=== PATIENT | male | born 1930 | race Caucasian/White ===

== ENCOUNTER 2017-12-06 05:38 | Emergency (ER) | payer MEDICARE, OTHER ==
[~2017-12-06] VITALS: Ht 170.2 cm; Wt 93.0 kg
[~2017-12-06 05:38] MED LIST: ADULT LOW DOSE81 MG PO; ALEVE220 MG PO; AMBEREN; AMOXICILLIN500 M1 PO; ASPIRIN EC81 M1 PO; CALCITRATE200 MG; CALCIUM CARBON500 M3 PO; CALCIUM OYSTER500 MG PO; CALTRATE-600 W1 EACH PO; CITRACAL PLUS1 EAC1 PO; CLONIDINE PO; DOXYCYCLINE 10100 MG PO; ELIGARD SUBQ; ETODOLAC 400 M400 M1 PO; FEOSOL325 MG PO; FOLIC ACID1 MG; HYDROCODON-ACE1 EAC7 PO; HYTRIN 2MG CAPSU2 M1; HYTRIN 2MG CAPSU2 M1 GT; HYTRIN 2MG CAPSU2 M1 PO; I-CAPS AREDS S1 EACH PO; IRON; IRON325 PO; KEFLEX500 MG PO; LASIX 20 MG TAB20 MG PO; LASIX 40 MG TAB40 M1; LASIX 40 MG TAB40 M1 PO; LASIX 40 MG TAB40 M2 PO; LISINOPRIL20 MG PO; MULTIVITAMIN W1 EAC5 PO; MULTIVITAMINS PO; NORCO 5-325 TA1 EACH PO; PERCOCET 7.5-31 EACH PO; PRILOSEC 20 MG20 MG PO; PRINIVIL20 MG; SEE COMMENTS; VICODIN ES TAB1 EACH PO; VITAMIN C + RO500 MG PO; VITAMINC500 PO; [UNRECOGNIZED DRUG - OTHER]
[2017-12-06] MEDS ORDERED: LASIX 40 MG TAB40 M2 PO (05:54)
[2017-12-06] MEDS ORDERED: PROTONIX40 M1 PO (05:56)
[2017-12-06] MEDS ORDERED: FOLIC ACID PO (05:57)
[2017-12-06] MEDS ORDERED: CASODEX 50 MG T50 M1 PO (05:57)
[2017-12-06] MEDS ORDERED: PLAVIX 75 MG TA75 M1 PO (05:58)
[2017-12-06] MEDS ORDERED: TOPROL XL25 MG PO (05:58)
[2017-12-06] MEDS ORDERED: CRESTOR20 MG PO (05:58)
[2017-12-06] MEDS ORDERED: IMDUR 30 MG TAB30 M1 PO (05:59)
[2017-12-06] MEDS ORDERED: GAVISCON TABLE1 EACH PO (05:59)
[2017-12-06 07:21] VITALS: BP 121/56
== END 2017-12-06 07:21 | disposition home or self-care (01) ==
LOC: M.ERS 05:38
DX: S01.81XA Laceration without foreign body of other part of head, initial encounter (principal); S61.412A Laceration without foreign body of left hand, initial encounter; I10 Essential (primary) hypertension; M19.90 Unspecified osteoarthritis, unspecified site; Z98.890 Other specified postprocedural states; Z85.46 Personal history of malignant neoplasm of prostate; Z96.649 Presence of unspecified artificial hip joint; W11.XXXA Fall on and from ladder, initial encounter; Y93.89 Activity, other specified; Y92.89 Other specified places as the place of occurrence of the external cause; Y99.8 Other external cause status

== ENCOUNTER → 2018-01-18 | Outpatient (CLI) | payer MEDICARE, OTHER ==
[~2018-01-18] MED LIST changes: +CASODEX 50 MG T50 M1 PO; +CRESTOR20 MG PO; +CYCLOBENZAPRINE5 MG PO; +FOLIC ACID PO; +GAVISCON TABLE1 EACH PO; +IMDUR 30 MG TAB30 M1 PO; +PLAVIX 75 MG TA75 M1 PO; +PROTONIX40 M1 PO; +PROTONIX40 M2 PO; +TOPROL XL25 MG PO
== END ==
LOC: M.RAD 09:22
DX: K21.9 Gastro-esophageal reflux disease without esophagitis (principal); I20.0 Unstable angina; I10 Essential (primary) hypertension

== ENCOUNTER 2018-04-29 16:17 | Emergency (ER) | payer MEDICARE, OTHER ==
[~2018-04-29] VITALS: Ht 170.2 cm; Wt 88.9 kg
[~2018-04-29 16:17] MED LIST changes: -CYCLOBENZAPRINE5 MG PO; -PROTONIX40 M2 PO
[2018-04-29] MEDS ORDERED: PROTONIX40 M2 PO (16:49)
[2018-04-29 18:06] LABS: HEMATOCRIT 31.7 % (42.0-52.0); HEMOGLOBIN 10.3 gm/dL (14.0-18.0); MCH 29.9 pg (26.0-34.0); MCHC 32.7 g/dL (28.0-37.0); MCV 91.5 fL (80.0-100.0); MPV 8.7 fl. (7.2-11.1); NUCLEATED RBCS 0 /100WBC; PLATELET COUNT* 179 thou/uL (150-400); RBC 3.46 mil/uL (4.50-6.00); RDW-CV 18.3 % (10.5-14.5); WBC 4.1 thou/uL (4.0-11.0)
[2018-04-29 18:19] LABS: CALCIUM 7.9 mg/dL (8.5-10.1); CREATININE 1.3 mg/dL (0.6-1.3); POTASSIUM 4.5 mmol/L (3.5-5.1)
[2018-04-29 18:22] LABS: URINE BILIRUBIN NEGATIVE (Negative); URINE BLOOD NEGATIVE (Negative); URINE CLARITY CLEAR; URINE COLOR YELLOW; URINE GLUCOSE-RANDOM NEGATIVE (Negative); URINE KETONES NEGATIVE (Negative); URINE LEUKOCYTES NEGATIVE (Negative); URINE NITRITE NEGATIVE (Negative); URINE PROTEIN NEGATIVE (Negative); URINE UROBILINOGEN 0.2 E.U./dl (0.2-1.0)
[2018-04-29 18:29] LABS: ABSOLUTE LYMPHOCYTES 0.7 thou/uL (0.8-5.3); ABSOLUTE MONOCYTES 1.1 thou/uL (0.0-1.2); ABSOLUTE NEUTROPHILS 2.3 thou/uL (1.6-8.1); ANISOCYTOSIS 1+; ATYPICAL LYMPHS 2 %; MICROCYTES 1+; PLATELET ESTIMATE ADEQUATE
[2018-04-29 18:34] LABS: ALBUMIN 2.4 g/dL (3.4-5.0); TOTAL BILIRUBIN 0.2 mg/dL (<0.1-1.0); TOTAL PROTEIN 5.8 g/dL (6.4-8.2)
[2018-04-29] MEDS ORDERED: CYCLOBENZAPRINE5 MG PO (18:37)
[2018-04-29 18:58] VITALS: BP 127/52
[2018-04-29 19:11] LABS: ESR (SEDRATE) 50 mm/hr (0-20)
== END 2018-04-29 18:59 | disposition home or self-care (01) ==
LOC: M.ERS 16:17
PROVIDERS: Emergency Medicine
DX: S16.1XXA Strain of muscle, fascia and tendon at neck level, initial encounter (principal); I10 Essential (primary) hypertension; M19.90 Unspecified osteoarthritis, unspecified site; Z85.46 Personal history of malignant neoplasm of prostate; Z96.642 Presence of left artificial hip joint; Z88.8 Allergy status to other drugs, medicaments and biological substances; X58.XXXA Exposure to other specified factors, initial encounter; Y93.89 Activity, other specified; Y92.89 Other specified places as the place of occurrence of the external cause; Y99.8 Other external cause status

== ENCOUNTER 2019-02-16 09:20 | Emergency (ER) | payer MEDICARE, OTHER ==
[~2019-02-16] VITALS: Ht 170.2 cm; Wt 86.2 kg
[~2019-02-16 09:20] MED LIST changes: +CYCLOBENZAPRINE5 MG PO; +PROTONIX40 M2 PO
[2019-02-16 10:19] LABS: URINE BILIRUBIN NEGATIVE (Negative); URINE BLOOD NEGATIVE (Negative); URINE CLARITY SL CLOUDY; URINE COLOR YELLOW; URINE GLUCOSE-RANDOM NEGATIVE (Negative); URINE KETONES NEGATIVE (Negative); URINE LEUKOCYTES-REFLEX NEGATIVE (Negative); URINE NITRITE-REFLEX NEGATIVE (Negative); URINE PROTEIN TRACE (Negative); URINE UROBILINOGEN 0.2 E.U./dl (0.2-1.0)
[2019-02-16 10:22] LABS: BACTERIA-REFLEX 1-9 Few /HPF (None Seen); MUCUS 0-3 Light strn/LPF (None Seen); SQUAMOUS 0-3 Few /LPF (0-3); URINE RBC 0-2 Rare /HPF (0-2); URINE WBC-REFLEX 0-5 Rare /HPF (0-5)
[2019-02-16 10:23] LABS: CRYSTALS None Seen /LPF (None Seen); HYALINE CASTS 0-3 Few /LPF (None Seen)
[2019-02-16 10:34] LABS: HEMATOCRIT 29.9 % (42.0-52.0); HEMOGLOBIN 10.1 gm/dL (14.0-18.0); MCH 32.2 pg (26.0-34.0); MCHC 33.8 g/dL (28.0-37.0); MCV 95.4 fL (80.0-100.0); NUCLEATED RBCS 0 /100WBC; PLATELET COUNT* 180 thou/uL (150-400); RBC 3.13 mil/uL (4.50-6.00); RDW-CV 13.8 % (10.5-14.5); WBC 5.8 thou/uL (4.0-11.0)
[2019-02-16] MEDS ORDERED: VISION VITAMIN1 EAC1 PO (10:34)
[2019-02-16] MEDS ORDERED: TOPROL XL25 MG PO (10:36)
[2019-02-16] MEDS ORDERED: LISINOPRIL10 MG PO (10:37)
[2019-02-16] MEDS ORDERED: HYTRIN 2MG CAPSU2 M1 PO (10:38)
[2019-02-16 10:47] LABS: ALBUMIN 2.7 g/dL (3.4-5.0); CALCIUM 8.1 mg/dL (8.5-10.1); CREATININE 1.3 mg/dL (0.6-1.3); POTASSIUM 4.4 mmol/L (3.5-5.1); TOTAL BILIRUBIN 0.3 mg/dL (<0.1-1.0); TOTAL PROTEIN 6.2 g/dL (6.4-8.2)
[2019-02-16 11:27] LABS: ABSOLUTE LYMPHOCYTES 0.5 thou/uL (0.8-5.3); ABSOLUTE MONOCYTES 0.8 thou/uL (0.0-1.2); ABSOLUTE NEUTROPHILS 4.5 thou/uL (1.6-8.1)
[2019-02-16 11:28] LABS: PLATELET ESTIMATE ADEQUATE
[2019-02-16 14:20] VITALS: BP 141/80
== END 2019-02-16 14:20 | disposition home or self-care (01) ==
LOC: M.ERS 09:20
PROVIDERS: Personal Emergency Response Attendant
DX: R10.31 Right lower quadrant pain (principal); R10.32 Left lower quadrant pain; I10 Essential (primary) hypertension; Z90.49 Acquired absence of other specified parts of digestive tract; M19.90 Unspecified osteoarthritis, unspecified site; Z85.46 Personal history of malignant neoplasm of prostate; Z85.01 Personal history of malignant neoplasm of esophagus; Z85.028 Personal history of other malignant neoplasm of stomach; Z96.642 Presence of left artificial hip joint; Z88.8 Allergy status to other drugs, medicaments and biological substances

== ENCOUNTER 2019-03-25 12:23 | Inpatient (IN) | payer MEDICARE, OTHER ==
[2019-03-25] VITALS (19 sets, daily range): BP systolic 83–118; BP diastolic 44–68
[~2019-03-25] VITALS: Ht 167.6 cm; Wt 85.3 kg
[~2019-03-25 12:23] MED LIST changes: +LISINOPRIL10 MG PO; +VISION VITAMIN1 EAC1 PO
[2019-03-25 12:51] LABS: HEMATOCRIT 35.3 % (42.0-52.0); HEMOGLOBIN 11.9 gm/dL (14.0-18.0); MCH 32.2 pg (26.0-34.0); MCHC 33.8 g/dL (28.0-37.0); MPV 8.4 fl. (7.2-11.1); NUCLEATED RBCS 0 /100WBC; PLATELET COUNT* 194 thou/uL (150-400); RBC 3.72 mil/uL (4.50-6.00); RDW-CV 14.4 % (10.5-14.5); WBC 8.6 thou/uL (4.0-11.0)
[2019-03-25 13:04] LABS: APTT 22.3 Seconds (25.0-31.3); INR 1.1; PROTIME 11.2 Seconds (9.20-11.50)
[2019-03-25 13:13] LABS: CALCIUM 8.9 mg/dL (8.5-10.1); CREATININE 1.4 mg/dL (0.6-1.3); POTASSIUM 4.2 mmol/L (3.5-5.1); TROPONIN-I LEVEL 0.11 ng/mL (<0.06)
[2019-03-25 13:14] LABS: ALBUMIN 3.2 g/dL (3.4-5.0); TOTAL BILIRUBIN 0.5 mg/dL (<0.1-1.0); TOTAL PROTEIN 6.9 g/dL (6.4-8.2)
[2019-03-25 13:39] LABS: ABSOLUTE LYMPHOCYTES 0.3 thou/uL (0.8-5.3); ABSOLUTE MONOCYTES 0.5 thou/uL (0.0-1.2); ABSOLUTE NEUTROPHILS 7.7 thou/uL (1.6-8.1)
[2019-03-25 13:40] LABS: PLATELET ESTIMATE ADEQUATE
--- NOTE | 2019-03-25 17:16 | EKG ---
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1930 Requested By: Mike Johnson Order Number: [id number] MD: Aryan Aguero Measurements Intervals [place] Rate: 137 P: [place]: QRS: -28 QRSD: 78 T: 64 QT: 332 QTc: 502 Interpretive Statements Atrial fibrillation Borderline left axis deviation ST depression, probably rate related Prolonged QT interval Baseline wander in lead(s) I Compared to ECG 10/25/2011 08:13:51 ST (T wave) deviation now present Prolonged QT interval now present Sinus rhythm no longer present Electronically Signed On 03-25-2019 17:16:13 CDT by Aryan Aguero [email or web address] <ELECTRONICALLY SIGNED> By: Aryan Aguero MD, FAC 03/25/19 1716 1328 1328 Aryan Aguero MD, FAC /EPI
[2019-03-26] VITALS (19 sets, daily range): BP systolic 95–137; BP diastolic 42–76
[2019-03-26 01:40] LABS: URINE BILIRUBIN NEGATIVE (Negative); URINE BLOOD NEGATIVE (Negative); URINE CLARITY CLEAR; URINE COLOR YELLOW; URINE GLUCOSE-RANDOM NEGATIVE (Negative); URINE KETONES TRACE (Negative); URINE LEUKOCYTES-REFLEX NEGATIVE (Negative); URINE NITRITE-REFLEX NEGATIVE (Negative); URINE PROTEIN NEGATIVE (Negative); URINE UROBILINOGEN 0.2 E.U./dl (0.2-1.0)
[2019-03-26 04:54] LABS: ABSOLUTE EOSINOPHILS 0.1 thou/uL (0.0-0.7); ABSOLUTE LYMPHOCYTES 0.4 thou/uL (0.8-5.3); ABSOLUTE MONOCYTES 0.8 thou/uL (0.0-1.2); ABSOLUTE NEUTROPHILS 6.8 thou/uL (1.6-8.1); BASOPHILS 0.1 %; EOSINOPHILS 1.5 %; HEMATOCRIT 30.7 % (42.0-52.0); HEMOGLOBIN 10.4 gm/dL (14.0-18.0); LYMPHOCYTES 4.6 %; MCH 31.9 pg (26.0-34.0); MCHC 33.9 g/dL (28.0-37.0); MONOCYTES 9.5 %; MPV 7.7 fl. (7.2-11.1); NUCLEATED RBCS 0 /100WBC; PLATELET COUNT* 149 thou/uL (150-400); POLYS 84.3 %; RBC 3.26 mil/uL (4.50-6.00); RDW-CV 14.7 % (10.5-14.5); WBC 8.1 thou/uL (4.0-11.0)
[2019-03-26 05:41] LABS: ALBUMIN 2.5 g/dL (3.4-5.0); MAGNESIUM 1.9 mg/dL (1.8-2.4); POTASSIUM 3.9 mmol/L (3.5-5.1); TOTAL BILIRUBIN 0.3 mg/dL (<0.1-1.0); TOTAL PROTEIN 5.6 g/dL (6.4-8.2); TROPONIN-I LEVEL 0.58 ng/mL (<0.06)
--- NOTE | 2019-03-26 11:14 | EKG ---
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1930 Requested By: Zuly Sinclair Order Number: [id number] Reading MD: Aryan Aguero Measurements Intervals [place] Rate: 96 P: [place]: QRS: -31 QRSD: 81 T: 33 QT: 375 QTc: 474 Interpretive Statements Atrial fibrillation Inferior infarct, old Compared to ECG 03/25/2019 13:28:39 rate slowed Prolonged QT interval no longer present Electronically Signed On 03-26-2019 11:14:32 CDT by Aryan Aguero [email or web address] <ELECTRONICALLY SIGNED> By: Aryan Aguero MD, [facility] 03/26/19 1114 7 Aryan Aguero MD, [facility] /EPI
--- NOTE | 2019-03-26 13:47 | 2DMMODE ---
[place] [address] 2 D/M-MODE ECHOCARDIOGRAM Name: VIRGIL LARA Room: [facility] IN [facility]#: [id number] Admission: 03/25/19 Attend Phys: Zuly Sinclair MD Discharge: Date of : 34 Date of Service: 03/26/19 1347 Report #: [id number] THIS REPORT FOR: //name// APPROVED REPORT Study performed: 03/26/2019 10:16:16 EXAM: Comprehensive 2D, Doppler, and color-flow Echocardiogram Patient Location: In-Patient Room #: [facility] Status: routine BSA: 1.88 HR: 69 bpm BP: 115/70 mmHg Rhythm: Atrial Fibrillation Other Information Study Quality: Good Indications Atrial Fibrillation 2D Dimensions IVSd: 17.02 (7-11mm) LVOT Diam: 19.92 (18-24mm) LVDd: 27.20 mm PWd: 14.42 (7-11mm) Ascending Ao: 33.93 (22-36mm) LVDs: 17.93 (25-40mm) Aortic Root: 32.13 mm Volumes Left Atrial Volume (Systole) LA ESV Index: 32.40 mL/m2 Aortic Valve AoV Peak Mohan.: 2.79 m/s AO Peak Gr.: 31.17 mmHg LVOT Max P.80 mmHg AO Mean Gr.: 19.72 mmHg LVOT Mean P.08 mmHg LVOT Max V: 0.98 m/s AO V2 VTI: 48.65 cm LVOT Mean V: 0.66 m/s YURI (VTI): 1.18 cm2 LVOT V1 VTI: 18.39 cm AI [place]: 1.91 m/s2 AI PHT: 536.32 ms Mitral Valve MV Mean Gr.: 2.98 [place] [address] 2 D/M-MODE ECHOCARDIOGRAM Name: VIRGIL LARA Room: [address] IN ..#: [id number] Admission: 03/25/19 Attend Phys: Zuly Sinclair MD Discharge: Date of : 32 Date of Service: 03/26/19 1347 Report #: [id number] TDI Medial E' Mohan.: 0.07 m/s Lateral E' Mohan.: 0.10 m/s Pulmonary Valve PV Peak Mohan.: 0.99 m/s PV Peak Gr.: 3.92 mmHg Tricuspid Valve RAP Estimate: 5.00 mmHg TR Peak Gr.: 25.93 mmHg RVSP: 31.00 mmHg PA Pressure: 31.00 mmHg Left Ventricle The left ventricle is normal size. There is normal LV segmental wall motion. Moderate concentric left ventricular hypertrophy. Left ventricular systolic function is normal. The left ventricular ejection fraction is within the normal range. LVEF is 60-65%. This study is not technically sufficient to allow evaluation of the LV diastolic function due to atrial fibrillation. Right Ventricle The right ventricle is normal size. The right ventricular systolic function is normal. Atria Left atrium is mildly dilated. The right atrium size is normal. Aortic Valve Moderate aortic valve sclerosis. Mild aortic regurgitation. Mild aortic stenosis. Mitral Valve Moderate mitral annular calcification. Trace mitral regurgitation. No evidence of mitral valve stenosis. Tricuspid Valve The tricuspid valve is normal in structure. Mild tricuspid regurgitation. estimated pa pressure 40 mm hg Pulmonic Valve The pulmonary valve is normal in structure. There is no pulmonic valvular regurgitation[place] [address] 2 D/M-MODE ECHOCARDIOGRAM Name: VIRGIL LARA Room: [address] IN [facility]#: [id number] Admission: 03/25/19 Attend Phys: Zuly Sinclair MD Discharge: Date of : 32 Date of Service: 03/26/19 1347 Report #: [id number] The aortic root is normal in size. IVC is normal in size and collapses >50% with inspiration. Pericardium There is no pericardial effusion. <Conclusion> Moderate concentric left ventricular hypertrophy. LVEF is 60-65%. Left atrium is mildly dilated. Mild aortic stenosis. Mild aortic regurgitation. Mild tricuspid regurgitation. estimated pa pressure 40 mm hg <ELECTRONICALLY SIGNED> By: Aryan Aguero MD, [facility] 03/26/19 1347 46 46 Aryan Aguero MD, FAC /INF
[2019-03-27] VITALS (7 sets, daily range): BP systolic 122–152; BP diastolic 70–87
[2019-03-27 06:11] LABS: HEMOGLOBIN 10.9 gm/dL (14.0-18.0); MCH 32.7 pg (26.0-34.0); MCHC 34.1 g/dL (28.0-37.0); MCV 95.8 fL (80.0-100.0); MPV 8.8 fl. (7.2-11.1); NUCLEATED RBCS 0 /100WBC; PLATELET COUNT* 154 thou/uL (150-400); RBC 3.35 mil/uL (4.50-6.00); RDW-CV 14.9 % (10.5-14.5); WBC 8.6 thou/uL (4.0-11.0)
[2019-03-27 06:21] LABS: CALCIUM 8.1 mg/dL (8.5-10.1); POTASSIUM 4.4 mmol/L (3.5-5.1)
[2019-03-27 06:50] LABS: ABSOLUTE EOSINOPHILS 0.1 thou/uL (0.0-0.7); ABSOLUTE LYMPHOCYTES 0.3 thou/uL (0.8-5.3); ABSOLUTE MONOCYTES 0.7 thou/uL (0.0-1.2); ABSOLUTE NEUTROPHILS 7.5 thou/uL (1.6-8.1)
[2019-03-27 06:51] LABS: MICROCYTES 1+; PLATELET ESTIMATE ADEQUATE
[2019-03-27 06:52] LABS: TOXIC GRANULATION 2+
--- NOTE | 2019-03-27 13:22 | CON ---
[address] [address] CONSULTATION Name: VIRGIL LARA Room: [address] IN .R.#: [id number] Admission: 03/25/19 Attend Phys: Zuly Sinclair MD Discharge: Date of : 32 Report #: [id number] THIS REPORT FOR: //name// CC: Aryan Sinclair DATE OF SERVICE: 03/26/2019 CARDIOLOGY CONSULTATION HISTORY OF PRESENT ILLNESS: The patient is an 88-year-old single white male who I was asked to see in the hospital after he had a fall. The history is obtained from the patient as well as his daughter. The patient has an extensive past medical history. He apparently had a coronary stent placed at [facility] in 09/2017. He is not very active because of his age and uses a walker. He has a long history of a heart murmur. He is followed by Dr. Vela in the Cardiology Clinic at [facility]. He was diagnosed with gastric cancer. He is currently receiving chemotherapy through a central port. He last received chemotherapy about 10 days ago. He has had difficulty swallowing. Apparently, 2 days ago, had an esophageal stent placed at [facility] on the [place]. The patient has a history of atrial fibrillation, but has never been cardioverted. He has been chronically anticoagulated. The patient was doing well until the last few days, he has been very weak. Apparently yesterday, he slipped and fell to the ground. He was brought here to [place] by ambulance. I was asked to see him for further evaluation and treatment. He denies recent chest pain, shortness of breath. There was no seizure activity. He had no recent bleeding. No vomiting, diarrhea. PAST MEDICAL HISTORY: He has had back surgery, bilateral knee replacements, hip surgery, shoulder surgery, hypertension, hyperlipidemia. MEDICATIONS: Consist of aspirin, Lasix, Imdur, lisinopril, metoprolol, Protonix, Crestor, Hytrin. FAMILY HISTORY: Negative for heart disease. SOCIAL HISTORY: His apparently this past year. He lives in [place] by himself. No smoking or alcohol abuse. REVIEW OF SYSTEMS: He has had no history of stroke, asthma, liver disease, kidney disease. He has high cholesterol, hypertension. No history of diabetes. PHYSICAL EXAMINATION: GENERAL: Elderly male, lying in bed, appeared in no distress. VITAL SIGNS: He had a blood pressure of 100/60, pulse is 90, [place] [address] CONSULTATION Name: VIRGIL LARA Room: [address] IN M.R.#: [id number] Admission: 03/25/19 Attend Phys: Zuly Sinclair MD Discharge: Date of : 32 Report #: [id number] HEENT: He is anicteric. Conjunctivae are pale. Mucous membranes appear dry. NECK: Veins do not appear distended. Neck is supple. CHEST: Clear to auscultation. CARDIOVASCULAR: Irregular rhythm. There is a grade 3 mid peaking systolic ejection murmur at left sternal border. ABDOMEN: Soft. EXTREMITIES: Had no edema. Dorsalis pedis pulse 1+ bilaterally. SKIN: Warm, dry. NEUROLOGIC: Nonfocal. LABORATORY DATA: His ECG on admission yesterday showed atrial fibrillation with rapid ventricular response rate, on the monitor, he persists in atrial fibrillation and of note he was noted to have a pause of 3.8 seconds. His echocardiogram today showed an ejection fraction of 60% with mild aortic stenosis and insufficiency, left ventricular hypertrophy. His portable chest x-ray on admission showed normal heart size, some scarring. CT scan of the head performed without contrast showed only atrophy. CT scan of the chest performed with contrast showed no fractures, some atelectasis, thyroid nodules. His lab work, sodium 140, creatinine 1.0. His albumin is 2.5. Troponin was 0.58. BNP 4897. His white blood cell count 8.1, hemoglobin 10.4, platelet count 49,000. IMPRESSION: 1. Fall, possibly due to dehydration. However, the patient is noted to have atrial fibrillation with both rapid rates and slow rates including a pause of almost 5 seconds. I would recommend placement of a pacemaker. 2. Atrial fibrillation. Onset unknown. The patient is asymptomatic. I would recommend permanent pacemaker and then medication to control the ventricular response rate. The patient does not appear to be a very good candidate for anticoagulation at this time. 3. Gastric cancer. The patient is receiving chemotherapy. 4. Recent placement of esophageal stent. 5. Hypertension. The patient on an BINTA inhibitor and beta mge. 6. Hyperlipidemia. The patient is on a statin drug. 7. Coronary artery disease with previous stent. No recent angina. <ELECTRONICALLY SIGNED> By: Aryan Aguero MD, FACC 03/27/19 1322 1630 0248Darizwana Aguero MD, FACC /nt
--- NOTE | 2019-03-27 13:29 | EKG ---
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
[2019-03-27 15:11] LABS: URINE BILIRUBIN NEGATIVE (Negative); URINE BLOOD NEGATIVE (Negative); URINE CLARITY CLEAR; URINE COLOR YELLOW; URINE GLUCOSE-RANDOM NEGATIVE (Negative); URINE KETONES NEGATIVE (Negative); URINE LEUKOCYTES-REFLEX NEGATIVE (Negative); URINE NITRITE-REFLEX NEGATIVE (Negative); URINE PROTEIN NEGATIVE (Negative); URINE UROBILINOGEN 0.2 E.U./dl (0.2-1.0)
[2019-03-28 03:44] VITALS: BP 156/81
[2019-03-28 05:21] LABS: ABSOLUTE EOSINOPHILS 0.2 thou/uL (0.0-0.7); ABSOLUTE LYMPHOCYTES 0.4 thou/uL (0.8-5.3); ABSOLUTE NEUTROPHILS 7.1 thou/uL (1.6-8.1); BASOPHILS 0.6 %; EOSINOPHILS 1.9 %; HEMATOCRIT 31.9 % (42.0-52.0); HEMOGLOBIN 10.8 gm/dL (14.0-18.0); LYMPHOCYTES 4.7 %; MCH 32.4 pg (26.0-34.0); MCV 95.1 fL (80.0-100.0); MPV 8.1 fl. (7.2-11.1); NUCLEATED RBCS 0 /100WBC; PLATELET COUNT* 160 thou/uL (150-400); POLYS 80.8 %; RBC 3.35 mil/uL (4.50-6.00); RDW-CV 14.9 % (10.5-14.5); WBC 8.7 thou/uL (4.0-11.0)
[2019-03-28 05:36] LABS: CALCIUM 8.3 mg/dL (8.5-10.1); CREATININE 1.1 mg/dL (0.6-1.3); MAGNESIUM 1.7 mg/dL (1.8-2.4); POTASSIUM 4.4 mmol/L (3.5-5.1)
[2019-03-28 07:39] VITALS: BP 144/91
--- NOTE | 2019-03-28 10:00 | EKG ---
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
[2019-03-28 12:08] VITALS: BP 121/73
--- NOTE | 2019-03-28 13:04 | CARD ---
[address] [address] CARDIAC CATH REPORT Name: VIRGIL LARA Room: [address] IN [facility]#: [id number] Admission: 03/25/19 Attend Phys: Zuly Sinclair MD Discharge: Date of : 32 Report #: [id number] THIS REPORT FOR: //name// APPROVED REPORT Study performed: 03/28/2019 08:30:24 Patient Status: In-Patient Room #: Event Personnel: Aryan Aguero Cloak Room Attendant, Sadi Veliz (Nevin Taylor Brad TECHNICAL ARCHITECT Monitor, Lakisha Alcazar RN Pointer Machine Operator Exam: Insertion of Single Chamber Permanent Pacemaker Indications: Sick Sinus Syndrome/Tachy Yared Syndrome The patient is a 88 year-old male with a history of Atrial Fibrillation. Conscious Sedation Start time: 841 End Time: 934 Versed 2 mg Implanted Devices: permanent single chamber mri compaitble biotronic pacemaker and lead Procedure The patient underwent informed consent. We discussed the details of the procedure including the risks, which include, but not limited to bleeding, infection, vascular damage, cardiac perforation, and pneumothorax. He understood these risks and was willing to proceed. As such, he was brought to the EP/Cardiac Catheterization laboratory in a fasting and sedated state and prepped and draped in a sterile fashion, received IV antibiotics prior to initiation of the procedure and a venogram was performed showing patency of the left axillary vein. The patient underwent conscious sedation, with no related complications. The patient was brought to the EP/Cardiac Catheterization laboratory and the left chest and shoulder were prepped and draped in a sterile manner. During this case, Fluoroscopy and low osmolar contrast were used for imaging. The left subclavian region was infiltrated with 2% Lidocaine subcutaneous anesthesia. A transverse incision was made in the left upper chest cavity. The subcutaneous pocket was [place] [address] CARDIAC CATH REPORT Name: VIRGIL LARA Room: [address] IN [facility].#: [id number] Admission: 03/25/19 Attend Phys: Zuly Sinclair MD Discharge: Date of : 32 Report #: [id number] venous access was achieved and an introducer sheath was inserted into the left Subclavian vein. Through the introducer sheaths the ventricular lead wire was positioned in the right atrial appendage and right ventricular apex respectively. Utilizing fluoroscopic guidance, the ventricular lead wire was advanced over the wires and positioned in the right atria and right ventricle respectively. Capturing and sensing thresholds were verified. Electrode Parameters R Wave: 10.4 mv Ventricular Threshold: 0.6 V @ 0.6 ms Ventricular Resistance: 682 ohm Single Chamber The ventricular lead was attached to the appropriate receptacle on the pulse generator and set screws firmly tightened to insure adequate contact and stability. The lead and pulse generator were placed into the subcutaneous pocket. Sharp and sponge counts were confirmed to be correct. At this time the pocket was closed subcutaneously with a 0 Vicryl and the skin was closed with a 4.0 Vicryl. The operative site was dressed in sterile fashion with skin affix and the patient was transferred to the floor in stable condition. Complications The patient tolerated the procedure well and there were no complications associated with the procedure. Findings Specimens Removed: No Estimated Blood Loss: less than 5 cc Conclusion successful placement of a single lead pacemaker and lead <ELECTRONICALLY SIGNED> By: Aryan Aguero MD, FACC 03/28/19 1303 1303 1303Davimario Aguero MD, FACC /INF
[2019-03-28 15:57] VITALS: BP 112/68
[2019-03-28 20:00] VITALS: BP 118/75
[2019-03-29] VITALS: BP 121/79
[2019-03-29 04:00] VITALS: BP 168/85
[2019-03-29 05:27] LABS: ABSOLUTE EOSINOPHILS 0.2 thou/uL (0.0-0.7); ABSOLUTE LYMPHOCYTES 0.3 thou/uL (0.8-5.3); ABSOLUTE MONOCYTES 1.1 thou/uL (0.0-1.2); ABSOLUTE NEUTROPHILS 7.8 thou/uL (1.6-8.1); BASOPHILS 0.3 %; EOSINOPHILS 1.9 %; HEMATOCRIT 32.1 % (42.0-52.0); LYMPHOCYTES 3.5 %; MCH 32.4 pg (26.0-34.0); MCHC 34.2 g/dL (28.0-37.0); MCV 94.8 fL (80.0-100.0); MONOCYTES 11.3 %; MPV 8.2 fl. (7.2-11.1); NUCLEATED RBCS 0 /100WBC; PLATELET COUNT* 166 thou/uL (150-400); RBC 3.39 mil/uL (4.50-6.00); WBC 9.4 thou/uL (4.0-11.0)
[2019-03-29 05:32] LABS: CALCIUM 8.1 mg/dL (8.5-10.1); CREATININE 1.2 mg/dL (0.6-1.3); MAGNESIUM 2.1 mg/dL (1.8-2.4); POTASSIUM 4.3 mmol/L (3.5-5.1)
[2019-03-29 09:00] VITALS: BP 135/78
[2019-03-29 11:17] VITALS: BP 135/78
[2019-03-29] MEDS ORDERED: TOPROL XL25 MG PO ×2 (12:48→13:39)
--- NOTE | 2019-03-29 13:48 | EKG ---
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1930 Requested By: Aryan Aguero Order Number: [id number] Reading MD: Aryan Aguero Measurements Intervals [place] Rate: 88 P: [place]: QRS: -35 QRSD: 78 T: 2 QT: 355 QTc: 430 Interpretive Statements Atrial fibrillation and V-paced complexes Left axis deviation Borderline T abnormalities, inferior leads Compared to ECG 03/28/2019 08:00:28 T-wave abnormality now present ST (T wave) deviation now present ventricular paced beats seen Electronically Signed On 03-29-2019 13:48:06 CDT by Aryan Aguero [email or web address] <ELECTRONICALLY SIGNED> By: Aryan Aguero MD, [facility] 03/29/19 1348 0834 0834 Aryan Aguero MD, [facility] /EPI
[2019-03-29 14:56] VITALS: BP 135/78
== END 2019-03-29 14:05 | disposition home health service (06) | DRG 242 ==
LOC: M.ERS 12:23 → M.TBA-ER 14:17 → M.ICU 14:17 → M.TBA-ER 15:05 → M.ICU 16:15 → M.2W 03-26 13:58
PROVIDERS: Family Medicine; Internal Medicine Cardiovascular Disease; ADMIT Family Medicine
DX: I49.5 Sick sinus syndrome (principal); I21.A1 Myocardial infarction type 2; N17.0 Acute kidney failure with tubular necrosis; D68.59 Other primary thrombophilia; M19.90 Unspecified osteoarthritis, unspecified site; Z96.642 Presence of left artificial hip joint; E86.0 Dehydration; I95.9 Hypotension, unspecified; Z96.653 Presence of artificial knee joint, bilateral; E78.5 Hyperlipidemia, unspecified; I25.10 Atherosclerotic heart disease of native coronary artery without angina pectoris; N18.3 Chronic kidney disease, stage 3 (moderate); E86.1 Hypovolemia; I12.9 Hypertensive chronic kidney disease with stage 1 through stage 4 chronic kidney disease, or unspecified chronic kidney disease; I48.2 Chronic atrial fibrillation; I35.0 Nonrheumatic aortic (valve) stenosis; Z90.49 Acquired absence of other specified parts of digestive tract; Z85.46 Personal history of malignant neoplasm of prostate; Z85.028 Personal history of other malignant neoplasm of stomach; Z95.5 Presence of coronary angioplasty implant and graft; Z88.8 Allergy status to other drugs, medicaments and biological substances; Z85.01 Personal history of malignant neoplasm of esophagus; Z92.21 Personal history of antineoplastic chemotherapy

== ENCOUNTER 2019-05-27 13:24 | Inpatient (IN) | payer MEDICARE, OTHER ==
[~2019-05-27] VITALS: Ht 167.6 cm; Wt 84.4 kg
[~2019-05-27 13:24] MED LIST changes: -FOLIC ACID1 MG; +FOLIC ACID1 MG PO
[2019-05-27] MEDS ORDERED: ATIVAN0.5 MG PO (13:46)
[2019-05-27 14:11] LABS: HEMATOCRIT 32.2 % (42.0-52.0); HEMOGLOBIN 10.5 gm/dL (14.0-18.0); MCH 31.6 pg (26.0-34.0); MCHC 32.5 g/dL (28.0-37.0); MCV 97.3 fL (80.0-100.0); MPV 8.3 fl. (7.2-11.1); NUCLEATED RBCS 0 /100WBC; PLATELET COUNT* 218 thou/uL (150-400); RBC 3.31 mil/uL (4.50-6.00); RDW-CV 18.5 % (10.5-14.5); WBC 11.8 thou/uL (4.0-11.0)
[2019-05-27 14:18] LABS: CALCIUM 8.2 mg/dL (8.5-10.1); POTASSIUM 4.2 mmol/L (3.5-5.1)
[2019-05-27 14:27] LABS: ALBUMIN 2.7 g/dL (3.4-5.0); TOTAL BILIRUBIN 0.7 mg/dL (<0.1-1.0); TOTAL PROTEIN 6.1 g/dL (6.4-8.2); TROPONIN-I LEVEL 0.08 ng/mL (<0.06)
[2019-05-27 14:56] LABS: ABSOLUTE LYMPHOCYTES 0.2 thou/uL (0.8-5.3); ABSOLUTE MONOCYTES 0.4 thou/uL (0.0-1.2); ABSOLUTE NEUTROPHILS 11.2 thou/uL (1.6-8.1); PLATELET ESTIMATE ADEQUATE
[2019-05-27 18:10] VITALS: BP 116/80
[2019-05-27 18:58] VITALS: BP 141/88
[2019-05-27 20:00] VITALS: BP 104/82
[2019-05-28] VITALS: BP 120/76
[2019-05-28 04:00] VITALS: BP 146/76
[2019-05-28 05:21] LABS: ABSOLUTE LYMPHOCYTES 0.2 thou/uL (0.8-5.3); ABSOLUTE MONOCYTES 0.7 thou/uL (0.0-1.2); ABSOLUTE NEUTROPHILS 6.8 thou/uL (1.6-8.1); BASOPHILS 0.3 %; EOSINOPHILS 0.2 %; HEMATOCRIT 23.6 % (42.0-52.0); LYMPHOCYTES 2.9 %; MCHC 33.6 g/dL (28.0-37.0); MCV 98.2 fL (80.0-100.0); MONOCYTES 8.8 %; NUCLEATED RBCS 0 /100WBC; POLYS 87.8 %; RBC 2.41 mil/uL (4.50-6.00); RDW-CV 17.9 % (10.5-14.5); WBC 7.8 thou/uL (4.0-11.0)
[2019-05-28 05:26] LABS: HEMOGLOBIN 7.9 gm/dL (14.0-18.0); PLATELET COUNT* 130 thou/uL (150-400)
[2019-05-28 05:42] LABS: CALCIUM 6.3 mg/dL (8.5-10.1); CREATININE 0.7 mg/dL (0.6-1.3)
[2019-05-28 05:44] LABS: POTASSIUM 3.1 mmol/L (3.5-5.1)
[2019-05-28 08:28] VITALS: BP 151/88
[2019-05-28 11:56] VITALS: BP 151/88
[2019-05-28 12:05] VITALS: BP 116/56
--- NOTE | 2019-05-28 12:21 | EKG ---
[place] [address] ELECTROCARDIOGRAM REPORT Name: VIRGIL LARA Room: [address] ADM IN .R.#: [id number] Admission: 05/27/19 Attend Phys: Hipolito Bhakta MD Discharge: Date of : 32 Report #: [id number] THIS REPORT FOR: //name// 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1930 Requested By: Mike Johnson Order Number: [id number] MD: Steve Monroe Measurements Intervals [place] Rate: 174 P: [place]: QRS: -22 QRSD: 70 T: 39 QT: 274 QTc: 466 Interpretive Statements Atrial fibrillation with rapid V-rate Borderline left axis deviation Baseline wander in lead(s) I,III,aVR,V3 Compared to ECG 03/29/2019 08:34:31 Ventricular-paced complex(es) or rhythm no longer present T-wave abnormality no longer present Electronically Signed On 05-28-2019 12:20:54 CDT by Steve Monroe [email or web address] <ELECTRONICALLY SIGNED> By: Steve Monroe MD, [facility] 05/28/19 1220 1355 1355 Steve Monroe MD, [facility] /EPI
[2019-05-28 20:00] VITALS: BP 96/41
[2019-05-29] VITALS: BP 91/54
[2019-05-29 04:00] VITALS: BP 91/57
[2019-05-29 08:00] VITALS: BP 90/56
[2019-05-29] MEDS ORDERED: CARAFATE1 GM/10 ML PO (11:42)
[2019-05-29] MEDS ORDERED: TOPROL XL100 MG PO (11:43)
[2019-05-29 11:52] VITALS: BP 151/88
--- NOTE | 2019-05-29 12:09 | CON ---
[address] [address] CONSULTATION Name: VIRGIL LARA Room: [address] IN M.R.#: [id number] Admission: 05/27/19 Attend Phys: Hipoilto Bhakta MD Discharge: Date of : 32 Report #: [id number] THIS REPORT FOR: //name// CC: Hipolito Tran Jaxon DICTATED BY: Susan Penn [facility] DATE OF SERVICE: 05/28/2019 PRIMARY CARE PHYSICIAN: Dr. Aryan Tran. ONCOLOGIST: Dr. Coates. Please note at the time of this dictation, the patient was seen and physically examined by myself. REASON FOR CONSULTATION: Nausea and abdominal pain; however, at the time that he was seen his symptoms have resolved. The patient states that typically when he feels this nausea, he is unable to vomit due to the stent that was placed approximately 5 weeks ago at [facility] on the [place] for his gastroesophageal cancer, but he was nauseous and he feels some upper epigastric pain that once he takes a pain pill, all of his discomfort goes away. He has had no issues with eating or drinking. He has been able to do so with the stent in place. He gets chemo every 2 weeks. He will get chemo again starting next Sunday. He was also noted in the Emergency Room, he had rapid atrial fibrillation and he is currently on a Cardizem drip. The patient did undergo an EGD with Dr. Vargas back in 02/2018 in which his cancer was found and he never had followed up with us and has been seen in [facility] and has been followed by GI over there. ALLERGIES: GABAPENTIN. MEDICATIONS FROM HOME: Aspirin, multivitamin, folic acid, Lasix, Protonix, lutein, vitamin C, Crestor, Imdur, Zestril, Hytrin, Toprol and Ativan. PAST MEDICAL HISTORY: Hypertension, arthritis, prostate cancer, esophageal gastric cancer, heart catheterization, hyperlipidemia. PAST SURGICAL HISTORY: Knee surgery, shoulder surgery, back surgery, appendectomy, hernia, prostatectomy and left hip replacement. FAMILY HISTORY: [place] [address] CONSULTATION Name: VIRGIL LARA Room: [address]#: [id number] Admission: 05/27/19 Attend Phys: Hipolito Bhakta MD Discharge: Date of : 32 Report #: [id number] SOCIAL HISTORY: Denies any alcohol, tobacco or illegal drug use. REVIEW OF SYSTEMS: Twelve-point review of systems is essentially negative except what is mentioned in the HPI. PHYSICAL EXAMINATION: VITAL SIGNS: Temperature 36.8, pulse 95, respirations 15, blood pressure 151/88. HEART: Irregular rate and rhythm. LUNGS: Diminished, but clear. ABDOMEN: Soft, positive bowel sounds in all 4 quadrants with no masses or tenderness noted. LABORATORY DATA: Hemoglobin 7.9, white count is 7.8, and platelets 130. GFR is 107. Chest x-ray suggesting some atelectasis versus pneumonitis, does show a stent over the mid stomach region. IMPRESSION: 1. Nausea, resolved. 2. Abdominal pain, resolved. 3. Thrombocytopenia. 4. 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 5. Atrial fibrillation. 6. History of prostate cancer. PLAN: 1. We will obtain medical records from [facility] on the [facility]. 2. Once these records have been noted, we will review and make further recommendations once Dr. Vargas sees the patient later today. Thank you for allowing us to participate in this patient's care. Please do not hesitate to call with any questions in regard to this consult. <ELECTRONICALLY SIGNED> By: Marquis Vargas DO 05/29/19 1209 1202 0125Marquis Vargas DO /nt
== END 2019-05-29 12:42 | disposition home or self-care (01) | DRG 919 ==
LOC: M.ERS 13:24 → M.TBA-ER 14:39 → M.2W 14:39
PROVIDERS: Family Medicine; ADMIT Internal Medicine
PROC: 0DP68DZ Removal of Intraluminal Device from Stomach, Via Natural or Artificial Opening Endoscopic (ICD-10-PCS; principal; 2019-05-28)
DX: T85.698A Other mechanical complication of other specified internal prosthetic devices, implants and grafts, initial encounter (principal); I50.33 Acute on chronic diastolic (congestive) heart failure; I13.0 Hypertensive heart and chronic kidney disease with heart failure and stage 1 through stage 4 chronic kidney disease, or unspecified chronic kidney disease; I48.91 Unspecified atrial fibrillation; M19.90 Unspecified osteoarthritis, unspecified site; Z96.642 Presence of left artificial hip joint; I25.10 Atherosclerotic heart disease of native coronary artery without angina pectoris; N18.3 Chronic kidney disease, stage 3 (moderate); E78.5 Hyperlipidemia, unspecified; D69.6 Thrombocytopenia, unspecified; I35.0 Nonrheumatic aortic (valve) stenosis; E87.6 Hypokalemia; E87.70 Fluid overload, unspecified; Z90.49 Acquired absence of other specified parts of digestive tract; Z85.46 Personal history of malignant neoplasm of prostate; Z85.01 Personal history of malignant neoplasm of esophagus; Z85.028 Personal history of other malignant neoplasm of stomach; Z95.5 Presence of coronary angioplasty implant and graft; Z88.8 Allergy status to other drugs, medicaments and biological substances; Z79.82 Long term (current) use of aspirin; Z79.899 Other long term (current) drug therapy; Z95.0 Presence of cardiac pacemaker; Y83.8 Other surgical procedures as the cause of abnormal reaction of the patient, or of later complication, without mention of misadventure at the time of the procedure; Y92.89 Other specified places as the place of occurrence of the external cause